=== PATIENT | female | born 1935 | race Caucasian/White ===

== ENCOUNTER → 2017-04-04 | Outpatient (CLI) | payer OTHER ==
[~2017-04-04] MED LIST: ADULT LOW DOSE81 MG PO; CALCIUM +D & M1 EACH PO; COUMADIN 2.5MG2.5 M1 PO; COUMADIN PO; EVISTA PO; FLECAINIDE ACET50 M1 PO; LIPITOR10 MG PO; NIASPAN ER 101000 M1 PO; OSTEOBIFLEX PO; OXYBUTYNIN 5 MG5 M2 PO; PRAVACHOL20 MG PO; PROTONIX40 M2 PO; SYNTHROID88 MCG PO; TOPROL XL25 MG PO; VITAMIN D1000 UNI1 PO
== END ==
LOC: RAD 01:04
DX: Z12.31 Encounter for screening mammogram for malignant neoplasm of breast (principal)

== ENCOUNTER → 2018-04-17 | Outpatient (CLI) | payer OTHER | LOC: RAD 03:12 → EDSTATUS 12:02 | DX: Z12.31 Encounter for screening mammogram for malignant neoplasm of breast (principal) ==